=== PATIENT | female | born 1960 | race Caucasian/White ===

== ENCOUNTER → 2016-11-28 | Outpatient (REF) | payer OTHER ==
[~2016-11-28] MED LIST: ESTR0.5T3 PO
[2016-11-28 12:45] LABS: VITAMIN B12 LEVEL 467 PG/ML
[2016-11-28 13:12] LABS: BASO % 0.5 % (0.0-1.0); EOS # 0.1 K/mm3 (0.0-0.50); EOS % 1.9 % (0.0-3.0); LARGE UNSTAINED CELL # 0.1 K/mm3 (0.0-0.4); LARGE UNSTAINED CELL % 2.3 % (0.0-4.0); LYMPH # 1.8 K/mm3 (1.5-4.5); LYMPH % 33.5 % (24.0-44.0); MEAN CORPUSCULAR HEMOGLOBIN 32.7 pg (27.0-33.0); MEAN CORPUSCULAR VOLUME 96.3 fl (80.0-96.0); MONO # 0.3 K/mm3 (0.0-0.8); MONO % 5.5 % (0.0-5.0); NEUTROPHILS % 56.3 % (36.0-66.0); PLATELET COUNT, AUTOMATED 180 k/mm3 (150-450); RED CELL DISTRIBUTION WIDTH 12.5 % (11.5-14.5); WHITE BLOOD COUNT 5.3 K/mm3 (4.0-10.0)
[2016-11-28 13:30] LABS: ALBUMIN 3.7 GM/DL (3.2-5.2); ALBUMIN/GLOBULIN RATIO 1.37 (1.00-1.93); ALKALINE PHOSPHATASE 68 U/L (45-117); ALT/SGPT 47 U/L (12-78); ANION GAP 7 MEQ/L (8-16); AST/SGOT 22 U/L (15-37); BILIRUBIN,TOTAL 0.6 MG/DL (0.2-1.0); BLOOD UREA NITROGEN 15 MG/DL (7-18); CARBON DIOXIDE LEVEL 29 MEQ/L (21-32); CHLORIDE LEVEL 107 MEQ/L (98-107); CHOLESTEROL LEVEL 222 MG/DL (<200); CREATININE FOR GFR 0.89 MG/DL (0.55-1.02); GLOMERULAR FILTRATION RATE > 60.0 (>51); GLUCOSE, FASTING 100 MG/DL (70-105); POTASSIUM SERUM 4.1 MEQ/L (3.5-5.1); SODIUM LEVEL 143 MEQ/L (136-145); TOTAL PROTEIN 6.4 GM/DL (6.4-8.2); TRIGLYCERIDES LEVEL 93 MG/DL (<150)
== END ==
LOC: M LABDRAW1 11:37
PROVIDERS: ATTEND Emergency Medicine
DX: Z00.00 Encounter for general adult medical examination without abnormal findings (principal); J30.9 Allergic rhinitis, unspecified; D51.9 Vitamin B12 deficiency anemia, unspecified; E78.2 Mixed hyperlipidemia; E55.9 Vitamin D deficiency, unspecified

== ENCOUNTER → 2017-03-27 | Outpatient (REF) | payer OTHER | LOC: M LABDRAW1 10:17 | PROVIDERS: ATTEND Emergency Medicine | DX: E55.9 Vitamin D deficiency, unspecified (principal) ==

== ENCOUNTER → 2017-11-16 | Outpatient (REF) | payer OTHER ==
[2017-11-16 12:45] LABS: VITAMIN B12 LEVEL 639 PG/ML (247-911)
== END ==
LOC: M LABDRAW1 11:51
DX: E04.2 Nontoxic multinodular goiter (principal)
CPT/HCPCS: 84443

== ENCOUNTER → 2017-12-04 | Outpatient (REF) | payer OTHER ==
[2017-12-05 10:46] LABS: AMORPHOUS SEDIMENT SMALL (NEGATIVE); APPEARANCE, URINE CLOUDY (CLEAR); BACTERIA, URINE AUTO 3+ (NEGATIVE); BILIRUBIN, URINE AUTO NEGATIVE (NEGATIVE); BLOOD, URINE BLOOD NEGATIVE (NEGATIVE); COLOR, URINE YELLOW (YELLOW); GLUCOSE, URINE (UA) AUTO NEGATIVE (NEGATIVE); KETONE, URINE AUTO NEGATIVE (NEGATIVE); LEUKOCYTE ESTERASE, URINE AUTO 3+ (NEGATIVE); NITRITE, URINE AUTO NEGATIVE (NEGATIVE); PROTEIN, URINE AUTO NEGATIVE (NEGATIVE); RBC, URINE AUTO 5 /HPF (0-3); SPECIFIC GRAVITY URINE AUTO 1.011 (1.002-1.035); SQUAMOUS EPITHELIAL CELL UR AU 4 /HPF (0-6); TRANSITIONAL EPITHELIAL AUTO 1 /HPF; UROBILINOGEN, URINE AUTO 0.2 mg/dL (0.0-2.0); WBC, URINE AUTO 8 /HPF (0-3)
== END ==
LOC: M LAB REF 09:28
DX: N39.0 Urinary tract infection, site not specified (principal)
CPT/HCPCS: 81001

== ENCOUNTER 2019-01-03 12:06 | Emergency (ER) | payer OTHER ==
[~2019-01-03] VITALS: Ht 162.6 cm; Wt 69.2 kg
[2019-01-03] MEDS ORDERED: ESTRADIOL VAG (12:14)
[2019-01-03] MEDS ORDERED: ISOVUE-370 76% 100ML VIAL (Q9967) As Ordered ONE (12:54)
[2019-01-03 12:59] LABS: BASO % 0.3 % (0.0-1.0); EOS # 0.1 10^3/uL (0.0-0.50); EOS % 0.7 % (0.0-3.0); HEMATOCRIT 34.3 % (36.0-47.0); HEMOGLOBIN 10.7 g/dl (12.0-15.5); LYMPH # 1.6 10^3/uL (1.5-4.5); LYMPH % 22.7 % (24.0-44.0); MEAN CORPUSCULAR HEMOGLOBIN 30.7 pg (27.0-33.0); MEAN CORPUSCULAR HGB CONC 31.2 g/dl (32.0-36.5); MEAN CORPUSCULAR VOLUME 98.3 fl (80.0-96.0); MONO # 0.7 10^3/uL (0.0-0.8); MONO % 9.3 % (0.0-5.0); NEUTROPHILS # 4.6 10^3/uL (1.8-7.7); NEUTROPHILS % 66.3 % (36.0-66.0); PLATELET COUNT, AUTOMATED 317 10^3/uL (150-450); RED BLOOD COUNT 3.49 10^6/uL (4.00-5.40)
[2019-01-03 13:10] LABS: INR 1.1; PROTHROMBIN TIME 13.9 SECONDS (11.8-14.0)
[2019-01-03 13:11] LABS: PARTIAL THROMBOPLASTIN TIME 32.1 SECONDS (25.0-38.4)
[2019-01-03 13:28] LABS: ALBUMIN 2.7 GM/DL (3.2-5.2); ALT/SGPT 16 U/L (12-78); BILIRUBIN,DIRECT 0.2 MG/DL (0.0-0.2); BILIRUBIN,TOTAL 0.4 MG/DL (0.2-1.0); BLOOD UREA NITROGEN 10 MG/DL (7-18); CALCIUM LEVEL 8.9 MG/DL (8.5-10.1); CARBON DIOXIDE LEVEL 25 MEQ/L (21-32); CHLORIDE LEVEL 103 MEQ/L (98-107); CK-MB VALUE MASS < 1.0 NG/ML (<3.6); CPK CREATINE PHOSPHOKINASE 36 U/L (26-192); CREATININE FOR GFR 0.65 MG/DL (0.55-1.30); GLOMERULAR FILTRATION RATE > 60.0 (>51); GLUCOSE, FASTING 83 MG/DL (70-100); MB/CK RELATIVE INDEX 2.78 (< OR =4); NT-PRO BNP 91 PG/ML (<125); POTASSIUM SERUM 3.6 MEQ/L (3.5-5.1); SODIUM LEVEL 140 MEQ/L (136-145); TOTAL PROTEIN 6.7 GM/DL (6.4-8.2); TROPONIN I < 0.02 NG/ML (< 0.10)
--- NOTE | 2019-01-03 13:50 | REP ---
HISTORY: Chest pain and dyspnea. COMPARISON: No priors for comparison. CONTRAST: 100 mL [id number] There is excellent visualization of the pulmonary arterial vasculature. There are no focal filling defects present that would be considered consistent with pulmonary emboli. The thoracic aorta is within normal limits. There is a moderate pericardial effusion. There are tiny bilateral pleural effusions. There is no mediastinal or hilar adenopathy. The imaged upper abdomen is within normal limits. The imaged osseous structures are within normal limits. Evaluation of the lung florian shows bibasilar subsegmental atelectatic changes. There are no abnormal nodules, masses or opacities. IMPRESSION: 1. There is no pulmonary embolus. 2. There is a moderate pericardial effusion. 3. Tiny bilateral pleural effusions. Electronically Signed by Frantz Scott DO 01/03/2019 02:05 P
--- NOTE | 2019-01-03 14:27 | REP ---
Abdominal right upper quadrant ultrasound: The patient reportedly had a CT of the abdomen for renal calculi. During that CT an hepatic mass was suspected. This has CT is not available in our film file for review. On the ultrasound study today there is an echogenic mass near the dome of the liver in the midline measuring 3.5 x 3.9 x 3.9 cm with irregular margins. I would recommend hepatic MRI for further evaluation. The there is no cholelithiasis, gallbladder wall thickening or pericholecystic fluid. There is no intrahepatic or extrahepatic biliary duct dilatation, the common duct measures 4 mm in diameter. The pancreas is obscured by bowel gas. The right kidney is normal size measuring 10.6 x 5.0 x 4.3 cm. No right renal calculus, hydronephrosis, mass or cyst. There is no right upper quadrant ascites. The study is technically difficult as the images had to be obtained through intercostal acoustic window. Impression: There is an echogenic hepatic mass near the dome of the liver in the midline measuring up to 3.9 cm. I would recommend hepatic MRI for further evaluation. Electronically Signed by Curly Amaya MD 01/03/2019 02:19 P
--- NOTE | 2019-01-03 16:13 | ECHO ---
DATE OF PROCEDURE: 01/03/2019 DATE OF : 1960 REFERRING PHYSICIAN: Dr. Carlos Mcginnis HEIGHT: 163 cm WEIGHT: 68.4 kg INDICATION: Pericardial effusion. 2D MEASUREMENTS: Aortic root: 3.0 cm Left atrium: 3.8 cm Left ventricle diastole: 4.2 cm Ventricular septum: 0.83 cm Posterior wall: 0.98 cm Aortic annulus: 2.4 cm Inferior vena cava: 1.7 cm (more than 50% respiratory variation). DOPPLER MEASUREMENTS: Aortic valve velocity: 110 cm/s LVOT velocity: 75.9 cm/s Mitral E velocity: 84.9 cm/s Mitral A velocity: 66.1 cm/s Mitral deceleration time: 151 ms Very mild tricuspid regurgitation. Very mild pulmonic regurgitation. Pulmonary artery systolic pressure: 38 mmHg MITRAL ANNULAR TISSUE DOPPLER: E prime septal: 8.3 cm/s E prime lateral: 10.7 cm/s DESCRIPTION: Rhythm was sinus. Image quality was good. This was a 2D, M-mode, color flow Doppler and pulse wave Doppler examination and included mitral annular tissue Doppler. CONCLUSIONS: 1. Small-moderate size pericardial effusion, which measured 11 mm over the posterior wall of the left ventricle at basal level and measured 11 mm over the right ventricle conus portion anteriorly. No diastolic chamber collapse. No significant respiratory variation of intracardiac flow velocities. No masses were seen within the pericardial effusion. 2. Normal left ventricle size and systolic function and wall thickness. Normal regional left ventricular (LV) wall motion and wall thickening. Normal LV systolic function. Left ventricular ejection fraction (LVEF) 65% by visual estimate. Normal LV diastolic function. 3. Suggestive of mild elevation of pulmonary artery systolic pressure. 4. Very mild aortic valve sclerosis of a 3-cusp aortic valve. No aortic regurgitation. 5. Suggestive of normal central venous pressure (5-10 mmHg).
[2019-01-03] MEDS ORDERED: COLC1TAB13 PO ×3 (16:16→17:35)
[2019-01-03 16:45] LABS: RHEUMATOID FACTOR QUANT < 10.0 IU/ML (<15.0)
[2019-01-03 17:00] VITALS: BP 97/53
--- NOTE | 2019-01-03 20:53 | ECGEPIP ---
[facility] - ED Test Date: 2019-01-03 Pat Name: MANE HOLLIS Department: Room: - Gender: Female [employer]: : 1960 Requested By: LAUREL Beltran Order Number: [id number] Reading MD: Andrew Loredo Measurements Intervals [place] Rate: 79 P: 43 LA: 180 QRS: 0 QRSD: 105 T: 30 QT: 395 QTc: 454 Interpretive Statements SINUS RHYTHM LOW QRS VOLTAGE IN PRECORDIAL LEADS NSTTW ABNORMALITIES NO PRIORS FOR COMPARISON Electronically Signed on 01-03-2019 20:53:18 EDT by Andrew Loredo
--- NOTE | 2019-01-04 19:56 | ED PDOC ---
Post-Departure Follow-Up dr marino sandoval faxed formal report of liver us for fu Nyla Randle MD Jan 04, 2019 19:56
[2019-01-05 14:09] LABS: ANTINUCLEAR ANTIBODIES DIRECT Negative (Negative)
== END 2019-01-03 17:07 | disposition home or self-care (01) ==
LOC: M ED 12:06
DX: I31.3 Pericardial effusion (noninflammatory) (principal); R93.2 Abnormal findings on diagnostic imaging of liver and biliary tract; E78.5 Hyperlipidemia, unspecified; R01.1 Cardiac murmur, unspecified; Z79.899 Other long term (current) drug therapy; Z88.6 Allergy status to analgesic agent
CPT/HCPCS: 36415; 71275; 76705; 80047; 80048; 80076; 81001; 82550; 82553; 83880; 84443; 84484; 85025; 85610; 85730; 86038; 86063; 86140; 86431; 87040; 87086; 93005; 93041; 93306; 94760; 99285; Q9967

== ENCOUNTER → 2019-01-11 | Outpatient (CLI) | payer OTHER ==
[~2019-01-11] MED LIST changes: +COLC1TAB13 PO; +ESTRADIOL VAG; +PROHANCE 279.3MG/ML 15ML VIAL (A9576) As Ordered ONE
[2019-01-11 12:32] LABS: HEPATITIS B SURFACE ANTIBODY POSITIVE (POSITIVE); HEPATITIS C VIRUS ABY INDEX 0.1 INDEX (<0.8)
--- NOTE | 2019-01-11 13:44 | REP ---
MRI ABDOMEN WITHOUT AND WITH INTRAVENOUS CONTRAST: HISTORY: Neoplasm of the liver. Comparison CT study January 03 2019. Comparison sonography January 03, 2019. TECHNIQUE: Axial and coronal imaging planes utilized. T1- and T2-weighted sequences include spin echo, fast spin echo, in- and out- of-phase, diffusion, and dynamically acquired sequential post contrast images. The contrast enhancement dose is 13.4 mL of intravenous ProHance. MRI FINDINGS: Gallbladder is small and contracted at the time of the MRI scan. Just lateral to the falciform ligament in the liver, there is an area of low T1 heterogeneously high T2 signal intensity. There is marked signal intensity dropout in this lesion on [id number] imaging relative to normal liver parenchyma consistent with fat content. The lesion shows low density on recent CT study and increased echogenicity sonographically. These findings are compatible with regional fatty infiltration of the liver. The lesion is wedge-shaped and not mass-like which is also consistent with a geographic focus of fatty infiltration. No other focal liver lesion is appreciated. Postcontrast images show normal vessels coursing through this. No abnormal contrast enhancement. No pancreatic, splenic, adrenal or renal lesion is observed. Exam is otherwise unremarkable. IMPRESSION: There is a focus of fatty infiltration in the liver corresponding to the lesion seen on recent CT and ultrasound. No other significant finding. Electronically Signed by Godwin Rawls MD 01/11/2019 03:47 P
== END ==
LOC: M RAD 09:56
PROVIDERS: ATTEND Internal Medicine
DX: D37.6 Neoplasm of uncertain behavior of liver, gallbladder and bile ducts (principal); K76.0 Fatty (change of) liver, not elsewhere classified
CPT/HCPCS: 36415; 74183; 82105; 82378; 86480; 86706; 86803; 87340; A9576

== ENCOUNTER → 2019-01-17 | Outpatient (CLI) | payer OTHER ==
[~2019-01-17] MED LIST changes: -PROHANCE 279.3MG/ML 15ML VIAL (A9576) As Ordered ONE
--- NOTE | 2019-01-18 05:07 | REP ---
Clinical: Pleural and pericardial effusion. Technique: Axial noncontrast images from the thoracic inlet to the upper abdomen with coronal and sagittal re-formations. Comparison: 01/03/2019. Findings: The bilateral lung florian are well-aerated and clear. No consolidation, significant nodule or mass lesion appreciated. No pleural effusion. No pneumothorax. Tracheobronchial tree is patent. Moderate pericardial effusion is similar to prior examination. No underlying cardiomegaly is appreciated. No obvious adenopathy. Musculoskeletal structures are intact without focal abnormality. Stable hepatic cysts identified in the upper abdomen with normal bilateral adrenal glands. Impression: 1. Moderate pericardial effusion relatively similar to prior examination. No associated cardiomegaly or adenopathy. 2. Previously noted trace basilar atelectasis and small pleural reactions have resolved. No new, acute pleuroparenchymal process appreciated. Electronically Signed by Song Humphrey MD 01/18/2019 04:59 A
== END ==
LOC: M RAD 08:51
PROVIDERS: ATTEND Internal Medicine
DX: J90 Pleural effusion, not elsewhere classified (principal); I31.3 Pericardial effusion (noninflammatory)

== ENCOUNTER → 2019-03-12 | Outpatient (CLI) | payer OTHER ==
--- NOTE | 2019-03-13 08:19 | ECHO ---
DATE OF PROCEDURE: 03/12/2019 REFERRING PHYSICIAN: Dr. Per Castillo INDICATION: Pericarditis. Height 162 cm Weight 64 kg. DIMENSIONS: IVS 0.7 LV 4.7 LVPW 1.1 LA 3.5 Aorta 3.1 IVC 1.2 Mitral E wave velocity 53, A-wave 43 E prime septal 7.0, E prime lateral 8.4 FINDINGS: The study is of acceptable technical quality. The patient is in sinus rhythm. Left ventricle is of normal size and systolic function with estimated LVEF 60-65%. Computer-calculated LVEF was 61%. Right ventricle is also normal size and systolic function. Both atria appear normal. All four cardiac valves were reasonably well seen and appear normal. Small circumferential pericardial effusion is noted. I do not appreciate diastolic collapse of any of four cardiac chambers. Inferior vena cava is relatively small caliber. Aortic root is normal. Aortic arch is also normal. Abdominal aorta was not well seen. Doppler interrogation reveals competent aortic and mitral valves. There is trace tricuspid insufficiency with calculated pulmonary artery pressure in teens corresponding to normal values. Pulmonic valve is functionally competent. Mitral inflow pattern and tissue Doppler imaging of mitral annulus reveal normal diastolic functional left ventricle. CONCLUSIONS: 1. Study is of acceptable technical quality. 2. Normal LV size and systolic function, normal diastolic function. 3. No significant valvular disease. 4. Normal central venous pressure and normal pulmonary artery pressure. 5. Small circumferential pericardial effusion. 6. Compared to echocardiogram from January 03, 2019 there has been virtually no change. COMMENT: SBE prophylaxis is not recommended. MTDD
== END ==
LOC: M CARPUL 08:13
PROVIDERS: ATTEND Thoracic Surgery (Cardiothoracic Vascular Surgery)
DX: I30.0 Acute nonspecific idiopathic pericarditis (principal)

== ENCOUNTER → 2019-07-09 | Outpatient (REF) | payer OTHER ==
[2019-07-09 14:00] LABS: APPEARANCE, URINE HAZY (CLEAR); BACTERIA, URINE AUTO 1+ (NEGATIVE); BILIRUBIN, URINE AUTO NEGATIVE (NEGATIVE); BLOOD, URINE BLOOD NEGATIVE (NEGATIVE); COLOR, URINE YELLOW (YELLOW); GLUCOSE, URINE (UA) AUTO NEGATIVE (NEGATIVE); KETONE, URINE AUTO NEGATIVE (NEGATIVE); LEUKOCYTE ESTERASE, URINE AUTO NEGATIVE (NEGATIVE); MUCUS, URINE SMALL (NEGATIVE); NITRITE, URINE AUTO NEGATIVE (NEGATIVE); PROTEIN, URINE AUTO NEGATIVE (NEGATIVE); RBC, URINE AUTO 3 /HPF (0-3); SPECIFIC GRAVITY URINE AUTO 1.023 (1.002-1.035); SQUAMOUS EPITHELIAL CELL UR AU 1 /HPF (0-6); UROBILINOGEN, URINE AUTO 0.2 mg/dL (0.0-2.0); WBC, URINE AUTO 1 /HPF (0-3)
[2019-07-09 14:11] LABS: C REACTIVE PROTEIN QUANTITATIV 1.63 MG/DL (0.00-0.30); COMPLEMENT C3 119 MG/DL (90-180); COMPLEMENT C4 24 MG/DL (10-40); FREE T4 0.93 NG/DL (0.76-1.46); RHEUMATOID FACTOR QUANT < 10.0 IU/ML (<15.0)
[2019-07-13 00:07] LABS: ANA (HEP2) Negative (.); CYCLIC CITRULLINATED PEPTIDE 9 units (0-19); Lyme Disease IgG/IgM Antibodie <0.91 ISR (0.00-0.90); Lyme Disease IgM Ab Quantitati <0.80 index (0.00-0.79)
== END ==
LOC: M SFHCRHEU 10:52
PROVIDERS: ATTEND Internal Medicine
DX: I31.3 Pericardial effusion (noninflammatory) (principal); R79.82 Elevated C-reactive protein (CRP); R31.9 Hematuria, unspecified
CPT/HCPCS: 36415; 81001; 84439; 84443; 85652; 86038; 86140; 86160; 86200; 86256; 86431; 86480; 86617; G0463

== ENCOUNTER → 2019-10-11 | Outpatient (REF) | payer OTHER | LOC: M SFHCRHEU 12:18 | PROVIDERS: ATTEND Internal Medicine | DX: M35.3 Polymyalgia rheumatica (principal) | CPT/HCPCS: 85652; 86140; 86200; G0463 ==

== ENCOUNTER → 2020-03-20 | Outpatient (CLI) | payer OTHER ==
--- NOTE | 2020-03-20 13:27 | REPVR ---
PROCEDURE INFORMATION: Exam: US Duplex Left Lower Extremity Veins, Limited Exam date and time: 03/20/2020 1:09 PM Age: 59 years old Clinical indication: Pain; Leg, lower; Left; Additional info: Lt leg pain swelling ? dvt TECHNIQUE: Imaging protocol: Real-time Duplex ultrasound of the Left Lower Extremity with 2-D callahan scale, color Doppler flow and spectral waveform analysis with image documentation. Limited exam focused on the left lower extremity veins. COMPARISON: No relevant prior studies available. FINDINGS: Left deep veins: Unremarkable. The common femoral, femoral, proximal profunda femoral and popliteal veins are patent without thrombus. Normal Doppler waveforms. Normal compressibility and/or augmentation response. Left superficial veins: Unremarkable. Saphenofemoral junction is patent without thrombus. The calf veins were not imaged on this exam. Soft tissues: Unremarkable. IMPRESSION: No evidence of deep vein thrombosis above the knee. Please note that the calf veins were not imaged on this exam. Electronically signed by: Virgil Stone On 03/20/2020 13:26:54 PM
== END ==
LOC: M RAD 12:55
PROVIDERS: ATTEND Internal Medicine
DX: R22.42 Localized swelling, mass and lump, left lower limb (principal)

== ENCOUNTER → 2020-10-23 | Outpatient (CLI) | payer OTHER ==
[~2020-10-23] MED LIST changes: +COLC0.6T47 PO; -COLC1TAB13 PO
--- NOTE | 2020-10-25 07:36 | REP ---
INDICATION: UNSPECIFIED DYSPAREUNIA,PELVIC AND PERINEAL PAIN COMPARISON: None TECHNIQUE: Real time B-mode ultrasound examination using curved array transducer. FINDINGS: Bladder is normal in appearance without wall thickening or mass lesion. Bilateral ureteral jets are identified. Prevoid bladder measures 4.3 x 5.7 x 4.3 cm (69 cc). Postvoid bladder measures 2.4 x 2.3 x 2.4 cm (8.6 cc). Postvoid residual: 12.5 IMPRESSION: 1. Poorly distended prevoid bladder limits evaluation. <Electronically signed by Song Humphrey > 10/25/20 [id number]
== END ==
LOC: M RAD 12:40
PROVIDERS: ATTEND Obstetrics & Gynecology
DX: R10.2 Pelvic and perineal pain (principal); N94.10 Unspecified dyspareunia

== ENCOUNTER 2021-10-14 19:21 | Emergency (ER) | payer OTHER ==
[~2021-10-14] VITALS: Ht 162.6 cm; Wt 77.3 kg
[2021-10-14 20:16] LABS: BASO % 0.5 % (0.0-1.0); EOS # 0.1 10^3/uL (0.0-0.5); EOS % 1.2 % (0.0-3.0); HEMATOCRIT 39.7 % (36.0-47.0); HEMOGLOBIN 13.2 g/dl (12.0-15.5); LYMPH # 2.4 10^3/uL (1.5-5.0); LYMPH % 36.3 % (24.0-44.0); MEAN CORPUSCULAR HEMOGLOBIN 31.4 pg (27.0-33.0); MEAN CORPUSCULAR HGB CONC 33.2 g/dl (32.0-36.5); MEAN CORPUSCULAR VOLUME 94.3 fl (80.0-96.0); MONO # 0.5 10^3/uL (0.0-0.8); MONO % 7.4 % (2.0-8.0); NEUTROPHILS # 3.5 10^3/uL (1.5-8.5); NEUTROPHILS % 54.3 % (36.0-66.0); PLATELET COUNT, AUTOMATED 207 10^3/uL (150-450); RED BLOOD COUNT 4.21 10^6/uL (4.00-5.40); WHITE BLOOD COUNT 6.5 10^3/uL (4.0-10.0)
[2021-10-14] MEDS ORDERED: methylPREDNISolone 125MG 2ML VIAL IV ONE (20:25)
[2021-10-14 20:40] LABS: BLOOD UREA NITROGEN 12 MG/DL (7-18); CALCIUM LEVEL 9.7 MG/DL (8.5-10.1); CARBON DIOXIDE LEVEL 29 MEQ/L (21-32); CHLORIDE LEVEL 107 MEQ/L (98-107); CREATININE FOR GFR 0.89 MG/DL (0.55-1.30); GLOMERULAR FILTRATION RATE > 60.0 (>51); GLUCOSE, FASTING 99 MG/DL (70-100); NT-PRO BNP 41 PG/ML (<125); POTASSIUM SERUM 3.8 MEQ/L (3.5-5.1); SODIUM LEVEL 141 MEQ/L (136-145)
[2021-10-14 20:43] LABS: ERYTHROCYTE SEDIMENTATION RATE 6 mm/hr (0-30)
[2021-10-14 21:28] LABS: CK-MB VALUE MASS < 1.0 NG/ML (<3.6); CPK CREATINE PHOSPHOKINASE 74 U/L (26-192); MB/CK RELATIVE INDEX 1.35 (< OR =4)
[2021-10-14 22:14] LABS: CK-MB VALUE MASS < 1.0 NG/ML (<3.6); CPK CREATINE PHOSPHOKINASE 68 U/L (26-192); MB/CK RELATIVE INDEX 1.47 (< OR =4)
[2021-10-14] MEDS ORDERED: HYDR200T3 PO (23:08)
[2021-10-14] MEDS ORDERED: NOXI1TAB PO (23:10)
[2021-10-14] MEDS ORDERED: CALC-190 PO (23:10)
[2021-10-14] MEDS ORDERED: ESTR1CRE PV (23:10)
[2021-10-14] MEDS ORDERED: PRED20TA PO (23:16)
[2021-10-14 23:45] VITALS: BP 118/56
== END 2021-10-14 23:55 | disposition home or self-care (01) ==
LOC: M ED 19:21
DX: I77.89 Other specified disorders of arteries and arterioles (principal); E03.9 Hypothyroidism, unspecified; Z88.6 Allergy status to analgesic agent; Z79.899 Other long term (current) drug therapy
CPT/HCPCS: 71045; 80048; 82550; 82553; 83880; 84484; 85025; 85652; 86140; 93005; 93041; 94760; 96374; 99285; J2930

== ENCOUNTER → 2021-10-26 | Outpatient (REF) | payer OTHER ==
[~2021-10-26] MED LIST changes: +CALC-190 PO; +ESTR1CRE PV; +HYDR200T3 PO; +NOXI1TAB PO; +PRED20TA PO
[2021-10-26 13:49] LABS: BASO % 0.3 % (0.0-1.0); EOS # 0.1 10^3/uL (0.0-0.5); EOS % 1.2 % (0.0-3.0); HEMATOCRIT 41.4 % (36.0-47.0); HEMOGLOBIN 13.2 g/dl (12.0-15.5); LYMPH # 1.8 10^3/uL (1.5-5.0); LYMPH % 30.2 % (24.0-44.0); MEAN CORPUSCULAR HEMOGLOBIN 30.9 pg (27.0-33.0); MEAN CORPUSCULAR HGB CONC 31.9 g/dl (32.0-36.5); MONO # 0.4 10^3/uL (0.0-0.8); MONO % 7.3 % (2.0-8.0); NEUTROPHILS # 3.7 10^3/uL (1.5-8.5); NEUTROPHILS % 60.8 % (36.0-66.0); PLATELET COUNT, AUTOMATED 185 10^3/uL (150-450); RED BLOOD COUNT 4.27 10^6/uL (4.00-5.40)
[2021-10-26 14:19] LABS: ALBUMIN 3.7 GM/DL (3.2-5.2); ALT/SGPT 19 U/L (12-78); BILIRUBIN,TOTAL 0.6 MG/DL (0.2-1.0); BLOOD UREA NITROGEN 13 MG/DL (7-18); CARBON DIOXIDE LEVEL 30 MEQ/L (21-32); CHLORIDE LEVEL 107 MEQ/L (98-107); CREATININE FOR GFR 0.85 MG/DL (0.55-1.30); GLOMERULAR FILTRATION RATE > 60.0 (>51); GLUCOSE, FASTING 86 MG/DL (70-100); POTASSIUM SERUM 4.4 MEQ/L (3.5-5.1); SODIUM LEVEL 141 MEQ/L (136-145); TOTAL PROTEIN 6.1 GM/DL (6.4-8.2)
[2021-10-26 14:30] LABS: ERYTHROCYTE SEDIMENTATION RATE 5 mm/hr (0-30)
== END ==
LOC: M SFHCRHEU 06:43
PROVIDERS: ATTEND Internal Medicine Rheumatology
DX: M35.3 Polymyalgia rheumatica (principal)

== ENCOUNTER → 2021-11-02 | Outpatient (CLI) | payer OTHER ==
[~2021-11-02] MED LIST changes: +ISOVUE-370 76% 100ML VIAL As Ordered ONE
== END ==
LOC: M RAD 16:41
PROVIDERS: ATTEND Internal Medicine
DX: R13.19 Other dysphagia (principal)
CPT/HCPCS: 70491; Q9967

== ENCOUNTER → 2021-11-16 | Outpatient (REF) | payer OTHER ==
[~2021-11-16] MED LIST changes: -ISOVUE-370 76% 100ML VIAL As Ordered ONE
[2021-11-16 11:41] LABS: BASO % 0.6 % (0.0-1.0); EOS # 0.1 10^3/uL (0.0-0.5); EOS % 1.5 % (0.0-3.0); HEMATOCRIT 40.7 % (36.0-47.0); HEMOGLOBIN 13.1 g/dl (12.0-15.5); LYMPH # 1.6 10^3/uL (1.5-5.0); LYMPH % 32.8 % (24.0-44.0); MEAN CORPUSCULAR HEMOGLOBIN 31.4 pg (27.0-33.0); MEAN CORPUSCULAR HGB CONC 32.2 g/dl (32.0-36.5); MEAN CORPUSCULAR VOLUME 97.6 fl (80.0-96.0); MONO # 0.3 10^3/uL (0.0-0.8); MONO % 6.1 % (2.0-8.0); NEUTROPHILS # 2.8 10^3/uL (1.5-8.5); NEUTROPHILS % 58.8 % (36.0-66.0); PLATELET COUNT, AUTOMATED 197 10^3/uL (150-450); RED BLOOD COUNT 4.17 10^6/uL (4.00-5.40); WHITE BLOOD COUNT 4.8 10^3/uL (4.0-10.0)
[2021-11-16 12:10] LABS: ALBUMIN 3.5 GM/DL (3.2-5.2); ALT/SGPT 20 U/L (12-78); BILIRUBIN,TOTAL 0.3 MG/DL (0.2-1.0); BLOOD UREA NITROGEN 13 MG/DL (7-18); CALCIUM LEVEL 8.9 MG/DL (8.5-10.1); CARBON DIOXIDE LEVEL 30 MEQ/L (21-32); CHLORIDE LEVEL 110 MEQ/L (98-107); CREATININE FOR GFR 0.76 MG/DL (0.55-1.30); GLOMERULAR FILTRATION RATE > 60.0 (>51); GLUCOSE, FASTING 106 MG/DL (70-100); POTASSIUM SERUM 4.5 MEQ/L (3.5-5.1); SODIUM LEVEL 143 MEQ/L (136-145); TOTAL PROTEIN 6.2 GM/DL (6.4-8.2)
[2021-11-16 12:15] LABS: TOTAL 25(OH) VITAMIN D 44.3 NG/ML (30.0-100.0)
[2021-11-16 12:39] LABS: ERYTHROCYTE SEDIMENTATION RATE 7 mm/hr (0-30)
== END ==
LOC: M SFHCRHEU 06:42
PROVIDERS: ATTEND Internal Medicine Rheumatology
DX: Z00.00 Encounter for general adult medical examination without abnormal findings (principal); M35.3 Polymyalgia rheumatica; E55.9 Vitamin D deficiency, unspecified; Z79.899 Other long term (current) drug therapy

== ENCOUNTER → 2021-11-23 | Outpatient (CLI) | payer OTHER ==
[~2021-11-23] MED LIST changes: +BARIUM SULFATE 700 MG TABLET (E-Z-DISK) As Ordered ONE; +E-Z-PAQUE 96% w/w SUSP 176GM BTL As Ordered ONE; +VARIBAR NECTAR 40% w/v 240ML SUSP BTL As Ordered ONE; +VARIBAR PUDDING 40% w/v 230ML TUBE As Ordered ONE
== END ==
LOC: M RAD 10:22
DX: R13.10 Dysphagia, unspecified (principal)
CPT/HCPCS: 74230; 92611; G0463

== ENCOUNTER → 2021-12-21 | Outpatient (CLI) | payer OTHER ==
[~2021-12-21] MED LIST changes: -BARIUM SULFATE 700 MG TABLET (E-Z-DISK) As Ordered ONE; -E-Z-PAQUE 96% w/w SUSP 176GM BTL As Ordered ONE; -VARIBAR NECTAR 40% w/v 240ML SUSP BTL As Ordered ONE; -VARIBAR PUDDING 40% w/v 230ML TUBE As Ordered ONE
== END ==
LOC: M RAD 15:48
PROVIDERS: ATTEND Student in an Organized Health Care Education/Training Program
DX: M54.42 Lumbago with sciatica, left side (principal)
CPT/HCPCS: 72110; G0463

== ENCOUNTER 2022-01-27 09:01 | Emergency (ER) | payer OTHER ==
[~2022-01-27] VITALS: Ht 162.6 cm; Wt 77.7 kg
[2022-01-27] MEDS ORDERED: LIDOCAINE 5% (LIDODERM) PATCH TD ONE (09:25)
[2022-01-27] MEDS ORDERED: NS 1,000 ML IV ONE (09:25)
[2022-01-27] MEDS ORDERED: GI COCKTAIL 50ML BTL(HYOSCYAMINE/MAALOX/LIDOCAINE VISCOUS)(1:3:1) PO ONE (09:50)
[2022-01-27] MEDS ORDERED: PANTOPRAZOLE 40MG VIAL IV ONE (09:50)
[2022-01-27 09:53] LABS: BASO % 0.6 % (0.0-1.0); EOS # 0.1 10^3/uL (0.0-0.5); EOS % 1.3 % (0.0-3.0); HEMATOCRIT 39.4 % (36.0-47.0); LYMPH # 1.6 10^3/uL (1.5-5.0); LYMPH % 29.6 % (24.0-44.0); MEAN CORPUSCULAR HEMOGLOBIN 31.6 pg (27.0-33.0); MEAN CORPUSCULAR VOLUME 95.6 fl (80.0-96.0); MONO # 0.4 10^3/uL (0.0-0.8); MONO % 7.3 % (2.0-8.0); NEUTROPHILS # 3.3 10^3/uL (1.5-8.5); PLATELET COUNT, AUTOMATED 184 10^3/uL (150-450); RED BLOOD COUNT 4.12 10^6/uL (4.00-5.40); WHITE BLOOD COUNT 5.4 10^3/uL (4.0-10.0)
[2022-01-27 10:11] LABS: INR 0.91; PROTHROMBIN TIME 12.6 SECONDS (12.7-14.5)
[2022-01-27 10:12] LABS: PARTIAL THROMBOPLASTIN TIME 28.2 SECONDS (25.9-37.0)
[2022-01-27 10:21] LABS: CK-MB VALUE MASS 1.9 NG/ML (<3.6); CPK CREATINE PHOSPHOKINASE 84 U/L (26-192); MB/CK RELATIVE INDEX 2.26 (< OR =4)
[2022-01-27 10:29] LABS: ALBUMIN 3.4 GM/DL (3.2-5.2); ALT/SGPT 22 U/L (12-78); BILIRUBIN,DIRECT 0.2 MG/DL (0.0-0.2); BILIRUBIN,TOTAL 0.4 MG/DL (0.2-1.0); BLOOD UREA NITROGEN 12 MG/DL (7-18); CALCIUM LEVEL 9.1 MG/DL (8.5-10.1); CARBON DIOXIDE LEVEL 27 MEQ/L (21-32); CHLORIDE LEVEL 109 MEQ/L (98-107); FREE T4 0.85 NG/DL (0.76-1.46); GLOMERULAR FILTRATION RATE > 60.0 (>51); GLUCOSE, FASTING 93 MG/DL (70-100); LIPASE 92 U/L (73-393); POTASSIUM SERUM 4.1 MEQ/L (3.5-5.1); SODIUM LEVEL 140 MEQ/L (136-145); TOTAL PROTEIN 5.9 GM/DL (6.4-8.2)
[2022-01-27] MEDS ORDERED: ISOVUE-370 76% 100ML VIAL As Ordered ONE (10:45)
[2022-01-27] MEDS ORDERED: methocarbamoL 750 MG TAB PO ONE (10:45)
[2022-01-27] MEDS ORDERED: METH-1165 PO (11:34)
[2022-01-27] MEDS ORDERED: ASPE4PAD TOP (11:34)
[2022-01-27] MEDS ORDERED: OMEP-173 PO (11:34)
[2022-01-27 12:06] VITALS: BP 115/57
[2022-01-27] MEDS ORDERED: **NOTE PATIENT COMMENT** MISC XX ONE (22:00)
== END 2022-01-27 12:07 | disposition home or self-care (01) ==
LOC: M ED 09:01
DX: R07.9 Chest pain, unspecified (principal); M54.50 Low back pain, unspecified; M54.6 Pain in thoracic spine; R10.13 Epigastric pain; Z88.6 Allergy status to analgesic agent
CPT/HCPCS: 71045; 71275; 80048; 80076; 82550; 82553; 83690; 84439; 84443; 84484; 85025; 85610; 85730; 93005; 93041; 94760; 96374; 99284; C9113; Q9967

== ENCOUNTER → 2022-09-02 | Outpatient (CLI) | payer OTHER ==
[~2022-09-02] MED LIST changes: +ASPE4PAD TOP; -ESTR1CRE PV; +ESTR1CRE VG; +ESTR1TAB PO; +METH-1165 PO; +OMEP-173 PO; +VITA100093 PO
== END ==
LOC: M RAD 06:23
PROVIDERS: ATTEND Student in an Organized Health Care Education/Training Program
DX: R16.0 Hepatomegaly, not elsewhere classified (principal)

== ENCOUNTER → 2023-01-04 | Outpatient (REF) | payer OTHER ==
[~2023-01-04] MED LIST changes: -HYDR200T3 PO; +HYDR200T46 PO; +LORA-930
== END ==
LOC: M SFHCRHEU 09:23
PROVIDERS: ATTEND Internal Medicine Rheumatology
DX: Z00.00 Encounter for general adult medical examination without abnormal findings (principal); M35.3 Polymyalgia rheumatica; R76.8 Other specified abnormal immunological findings in serum; Z79.899 Other long term (current) drug therapy; R94.6 Abnormal results of thyroid function studies; E55.9 Vitamin D deficiency, unspecified; Z53.9 Procedure and treatment not carried out, unspecified reason

== ENCOUNTER → 2023-02-08 | Outpatient (CLI) | payer OTHER | LOC: M PLAIMG 13:09 | PROVIDERS: ATTEND Family Medicine | DX: S06.0X9D Concussion with loss of consciousness of unspecified duration, subsequent encounter (principal) ==

== ENCOUNTER → 2023-04-17 | Outpatient (REF) | payer OTHER | LOC: M SFHCWAGY 13:15 | PROVIDERS: ATTEND Nurse Practitioner Family | DX: Z12.72 Encounter for screening for malignant neoplasm of vagina (principal) | CPT/HCPCS: 87624; G0123; G0463 ==

== ENCOUNTER 2023-05-22 08:48 | Emergency (ER) | payer OTHER ==
[~2023-05-22] VITALS: Ht 162.6 cm; Wt 67.3 kg
[2023-05-22] MEDS ORDERED: ECOT81TA5 PO (09:18)
[2023-05-22 10:01] LABS: BASO % 0.4 % (0.0-1.0); EOS % 0.8 % (0.0-3.0); HEMATOCRIT 38.2 % (36.0-47.0); HEMOGLOBIN 12.7 g/dl (12.0-15.5); LYMPH # 1.4 10^3/uL (1.5-5.0); LYMPH % 29.1 % (24.0-44.0); MEAN CORPUSCULAR HEMOGLOBIN 31.8 pg (27.0-33.0); MEAN CORPUSCULAR HGB CONC 33.2 g/dl (32.0-36.5); MEAN CORPUSCULAR VOLUME 95.7 fl (80.0-96.0); MONO # 0.3 10^3/uL (0.0-0.8); MONO % 6.5 % (2.0-8.0); NEUTROPHILS # 3.1 10^3/uL (1.5-8.5); PLATELET COUNT, AUTOMATED 175 10^3/uL (150-450); RED BLOOD COUNT 3.99 10^6/uL (4.00-5.40); WHITE BLOOD COUNT 4.9 10^3/uL (4.0-10.0)
[2023-05-22] MEDS ORDERED: MED REC IN PROGRESS XX SCH (10:20)
[2023-05-22 10:21] LABS: INR 1.04; PROTHROMBIN TIME 13.3 SECONDS (12.5-14.5)
[2023-05-22 10:22] LABS: PARTIAL THROMBOPLASTIN TIME 27.1 SECONDS (24.8-34.2)
[2023-05-22 10:28] LABS: AMPHETAMINES LEVEL URINE NEGATIVE (NEGATIVE); BARBITURATES URINE NEGATIVE (NEGATIVE); BENZODIAZEPINES URINE NEGATIVE (NEGATIVE); CANNABINOIDS URINE NEGATIVE (NEGATIVE); COCAINE METABOLITE URINE NEGATIVE (NEGATIVE); METHADONE URINE NEGATIVE (NEGATIVE); OPIATES URINE NEGATIVE (NEGATIVE); PHENCYCLIDINE URINE NEGATIVE (NEGATIVE)
[2023-05-22 11:21] VITALS: TEMP 97.2; O2SAT 100
[2023-05-22 11:45] LABS: CK-MB VALUE MASS < 1.0 NG/ML (<3.6)
[2023-05-22 11:55] LABS: CPK CREATINE PHOSPHOKINASE 88 U/L (34-145); MB/CK RELATIVE INDEX 1.13 (< OR =4)
[2023-05-22 12:11] LABS: RSV AMPLIFICATION NEGATIVE (NEGATIVE)
[2023-05-22] MEDS ORDERED: HOME MED LIST COMPLETE! XX SCH (12:30)
[2023-05-22 12:48] VITALS: BP 143/63
[2023-05-22 13:02] LABS: ALBUMIN 3.7 G/DL (3.2-5.2); ALKALINE PHOSPHATASE 49 U/L (46-116); ALT/SGPT 25 U/L (7.0-40); AST/SGOT 19 U/L (<34); BILIRUBIN,DIRECT 0.1 MG/DL (<0.4); BILIRUBIN,TOTAL 0.5 MG/DL (0.3-1.2); BLOOD UREA NITROGEN 11 MG/DL (9-23); CALCIUM LEVEL 8.7 MG/DL (8.3-10.6); CARBON DIOXIDE LEVEL 25 MMOL/L (20-31); CHLORIDE LEVEL 109 MMOL/L (98-107); CREATININE FOR GFR 0.64 MG/DL (0.55-1.30); ETHYL ALCOHOL (ETHANOL) 0.004 % (0.000-0.010); FREE T4 1.02 NG/DL (0.89-1.76); GLOMERULAR FILTRATION RATE > 60.0 (>45); GLUCOSE, FASTING 96 MG/DL (74-106); SALICYLATE LEVEL < 3.0 MG/DL (<30); SODIUM LEVEL 143 MMOL/L (136-145); THYROID STIMULATING HORMONE 1.512 uIU/ML (0.55-4.78); TOTAL PROTEIN 6.1 G/DL (5.7-8.2)
[2023-05-22 13:15] LABS: CK-MB VALUE MASS < 1.0 NG/ML (<3.6)
[2023-05-22 13:17] LABS: CPK CREATINE PHOSPHOKINASE 92 U/L (34-145); MB/CK RELATIVE INDEX 1.08 (< OR =4)
== END 2023-05-22 14:54 | disposition home or self-care (01) ==
LOC: EDBD 08:48 → M ED 08:48
DX: R55 Syncope and collapse (principal); Z87.820 Personal history of traumatic brain injury; Z11.52 Encounter for screening for COVID-19; I51.81 Takotsubo syndrome; M35.3 Polymyalgia rheumatica; Z79.899 Other long term (current) drug therapy

== ENCOUNTER → 2023-06-15 | Outpatient (REF) | payer OTHER ==
[~2023-06-15] MED LIST changes: +ECOT81TA5 PO
[2023-06-15 12:00] LABS: BASO % 0.6 % (0.0-1.0); EOS # 0.1 10^3/uL (0.0-0.5); EOS % 1.6 % (0.0-3.0); HEMATOCRIT 37.4 % (36.0-47.0); HEMOGLOBIN 12.1 g/dl (12.0-15.5); LYMPH # 1.8 10^3/uL (1.5-5.0); LYMPH % 36.2 % (24.0-44.0); MEAN CORPUSCULAR HEMOGLOBIN 31.8 pg (27.0-33.0); MEAN CORPUSCULAR HGB CONC 32.4 g/dl (32.0-36.5); MEAN CORPUSCULAR VOLUME 98.2 fl (80.0-96.0); MONO # 0.3 10^3/uL (0.0-0.8); MONO % 6.4 % (2.0-8.0); NEUTROPHILS # 2.8 10^3/uL (1.5-8.5); NEUTROPHILS % 55.2 % (36.0-66.0); PLATELET COUNT, AUTOMATED 173 10^3/uL (150-450); RED BLOOD COUNT 3.81 10^6/uL (4.00-5.40)
[2023-06-15 12:26] LABS: C REACTIVE PROTEIN QUANTITATIV < 0.40 MG/DL (<1.0)
[2023-06-15 12:27] LABS: ALBUMIN 3.5 G/DL (3.2-5.2); ALKALINE PHOSPHATASE 50 U/L (46-116); ALT/SGPT 17 U/L (7.0-40); AST/SGOT 11 U/L (<34); BILIRUBIN,TOTAL 0.6 MG/DL (0.3-1.2); BLOOD UREA NITROGEN 14 MG/DL (9-23); CALCIUM LEVEL 8.7 MG/DL (8.3-10.6); CARBON DIOXIDE LEVEL 29 MMOL/L (20-31); CHLORIDE LEVEL 110 MMOL/L (98-107); CREATININE FOR GFR 0.72 MG/DL (0.55-1.30); GLOMERULAR FILTRATION RATE > 60.0 (>45); GLUCOSE, FASTING 66 MG/DL (74-106); POTASSIUM SERUM 4.1 MMOL/L (3.5-5.1); SODIUM LEVEL 144 MMOL/L (136-145); TOTAL PROTEIN 5.6 G/DL (5.7-8.2)
[2023-06-15 12:32] LABS: ERYTHROCYTE SEDIMENTATION RATE 2 mm/hr (0-30)
== END ==
LOC: M SFHCRHEU 06:59
PROVIDERS: ATTEND Internal Medicine Rheumatology
DX: Z00.00 Encounter for general adult medical examination without abnormal findings (principal); M35.3 Polymyalgia rheumatica; R76.8 Other specified abnormal immunological findings in serum; Z79.899 Other long term (current) drug therapy; R94.6 Abnormal results of thyroid function studies; E55.9 Vitamin D deficiency, unspecified

== ENCOUNTER → 2023-09-12 | Outpatient (CLI) | payer OTHER ==
[2023-09-12 15:47] LABS: CORTISOL BASELINE 4.5 UG/DL (4.3-22.4)
[2023-09-12 15:49] LABS: THYROID STIMULATING HORMONE 1.692 uIU/ML (0.55-4.78)
[2023-09-12 15:50] LABS: PROLACTIN 5.46 NG/ML
[2023-09-12 15:53] LABS: FREE T4 0.96 NG/DL (0.89-1.76)
== END ==
LOC: M PLALAB 12:27
PROVIDERS: ATTEND Physical Medicine & Rehabilitation
DX: F07.81 Postconcussional syndrome (principal)

== ENCOUNTER → 2023-09-19 | Outpatient (REF) | payer OTHER ==
[2023-09-19 13:13] LABS: BASO % 0.6 % (0.0-1.0); EOS # 0.1 10^3/uL (0.0-0.5); EOS % 2.7 % (0.0-3.0); HEMATOCRIT 36.9 % (36.0-47.0); HEMOGLOBIN 11.8 g/dl (12.0-15.5); LYMPH # 1.8 10^3/uL (1.5-5.0); LYMPH % 36.3 % (24.0-44.0); MEAN CORPUSCULAR HEMOGLOBIN 31.7 pg (27.0-33.0); MEAN CORPUSCULAR VOLUME 99.2 fl (80.0-96.0); MONO # 0.4 10^3/uL (0.0-0.8); MONO % 7.5 % (2.0-8.0); NEUTROPHILS # 2.5 10^3/uL (1.5-8.5); NEUTROPHILS % 52.7 % (36.0-66.0); PLATELET COUNT, AUTOMATED 170 10^3/uL (150-450); RED BLOOD COUNT 3.72 10^6/uL (4.00-5.40); WHITE BLOOD COUNT 4.8 10^3/uL (4.0-10.0)
[2023-09-19 13:32] LABS: ERYTHROCYTE SEDIMENTATION RATE 2 mm/hr (0-30)
[2023-09-19 13:38] LABS: C REACTIVE PROTEIN QUANTITATIV < 0.40 MG/DL (<1.0)
[2023-09-19 13:40] LABS: ALBUMIN 3.6 G/DL (3.2-5.2); ALKALINE PHOSPHATASE 54 U/L (46-116); ALT/SGPT 19 U/L (7.0-40); AST/SGOT 14 U/L (<34); BILIRUBIN,TOTAL 0.6 MG/DL (0.3-1.2); BLOOD UREA NITROGEN 17 MG/DL (9-23); CALCIUM LEVEL 8.7 MG/DL (8.3-10.6); CARBON DIOXIDE LEVEL 31 MMOL/L (20-31); CHLORIDE LEVEL 109 MMOL/L (98-107); GLOMERULAR FILTRATION RATE > 60.0 (>45); GLUCOSE, FASTING 89 MG/DL (74-106); POTASSIUM SERUM 4.3 MMOL/L (3.5-5.1); SODIUM LEVEL 144 MMOL/L (136-145); TOTAL PROTEIN 5.6 G/DL (5.7-8.2)
== END ==
LOC: M SFHCRHEU 07:02
PROVIDERS: ATTEND Internal Medicine Rheumatology
DX: M35.3 Polymyalgia rheumatica (principal); R76.8 Other specified abnormal immunological findings in serum; Z79.899 Other long term (current) drug therapy; R94.6 Abnormal results of thyroid function studies; E55.9 Vitamin D deficiency, unspecified

== ENCOUNTER → 2023-09-20 | Outpatient (CLI) | payer OTHER | LOC: M RAD 08:02 | PROVIDERS: ATTEND Family Medicine | DX: Z82.49 Family history of ischemic heart disease and other diseases of the circulatory system (principal) ==

== ENCOUNTER → 2023-10-02 | Outpatient (CLI) | payer OTHER ==
[2023-10-02 10:47] LABS: CHOLESTEROL LEVEL 239 MG/DL (<200); CHOLESTEROL RISK RATIO 3.09 (<5); HDL CHOLESTEROL 77.3 MG/DL (>40); LDL CHOLESTEROL 146.3 MG/DL (<100); NON-HDL-C 161.7 MG/DL; TRIGLYCERIDES LEVEL 77 MG/DL (<150)
[2023-10-02 10:48] LABS: FOLATE > 24.00 NG/ML (>5.4); TOTAL 25(OH) VITAMIN D 36.5 NG/ML (20.0-100.0)
[2023-10-02 11:18] LABS: VITAMIN B12 LEVEL > 2000 PG/ML (211-911)
== END ==
LOC: M PLALAB 07:07
PROVIDERS: ATTEND Family Medicine
DX: E66.3 Overweight (principal)

== ENCOUNTER → 2023-10-30 | Outpatient (CLI) | payer OTHER ==
[2023-10-30 08:10] LABS: BASO % 0.6 % (0.0-1.0); EOS # 0.1 10^3/uL (0.0-0.5); EOS % 2.2 % (0.0-3.0); HEMATOCRIT 36.4 % (36.0-47.0); HEMOGLOBIN 12.1 g/dl (12.0-15.5); LYMPH # 1.9 10^3/uL (1.5-5.0); MEAN CORPUSCULAR HEMOGLOBIN 32.1 pg (27.0-33.0); MEAN CORPUSCULAR HGB CONC 33.2 g/dl (32.0-36.5); MEAN CORPUSCULAR VOLUME 96.6 fl (80.0-96.0); MONO # 0.3 10^3/uL (0.0-0.8); MONO % 6.8 % (2.0-8.0); NEUTROPHILS # 2.7 10^3/uL (1.5-8.5); PLATELET COUNT, AUTOMATED 178 10^3/uL (150-450); RED BLOOD COUNT 3.77 10^6/uL (4.00-5.40)
[2023-10-30 08:37] LABS: FOLATE 23.09 NG/ML (>5.4)
== END ==
LOC: M LAB 07:15 → M PLALAB 07:15
PROVIDERS: ATTEND Family Medicine
DX: R74.8 Abnormal levels of other serum enzymes (principal)

== ENCOUNTER → 2023-12-15 | Outpatient (CLI) | payer OTHER | LOC: M PLALAB 10:36 | PROVIDERS: ATTEND Physician Assistant | DX: R22.9 Localized swelling, mass and lump, unspecified (principal); R07.81 Pleurodynia; M54.89 Other dorsalgia; M47.814 Spondylosis without myelopathy or radiculopathy, thoracic region ==

== ENCOUNTER → 2024-01-18 | Outpatient (CLI) | payer OTHER | LOC: M RAD 14:25 | PROVIDERS: ATTEND Physician Assistant | DX: R22.9 Localized swelling, mass and lump, unspecified (principal) ==

== ENCOUNTER 2024-02-22 06:59 | Day surgery (SDC) | payer OTHER ==
[~2024-02-22] VITALS: Ht 162.6 cm; Wt 69.4 kg
[~2024-02-22 06:59] MED LIST changes: +CALC600C3 PO; +ELDE350C PO; +MAGN400C PO; +OMEG10002 PO; +PROB250C PO; +REFR0.5D8 OP
[2024-02-22] MEDS: NS 1,000 ML IV ONE (07:32)
[2024-02-22] MEDS ORDERED: GLYCOPYRROLATE INJ 0.2 MG/ML 2 ML VIAL As Ordered ONE (08:10)
[2024-02-22] MEDS ORDERED: propofoL 200 MG/20 ML VIAL As Ordered ONE (08:11)
[2024-02-22 08:27] VITALS: TEMP 96.9
[2024-02-22 08:40] VITALS: BP 108/52; O2SAT 97
== END 2024-02-22 08:40 | disposition home or self-care (01) ==
LOC: M OPP 06:59
PROVIDERS: ATTEND Internal Medicine Gastroenterology
DX: Z12.11 Encounter for screening for malignant neoplasm of colon (principal); D12.0 Benign neoplasm of cecum; K64.8 Other hemorrhoids; K57.30 Diverticulosis of large intestine without perforation or abscess without bleeding; I50.9 Heart failure, unspecified; Z79.82 Long term (current) use of aspirin; Z79.810 Long term (current) use of selective estrogen receptor modulators (SERMs)
CPT/HCPCS: 45385; 88305; J1596

== ENCOUNTER → 2024-06-18 | Outpatient (CLI) | payer OTHER | LOC: M RAD 09:58 | PROVIDERS: ATTEND Nurse Practitioner Family | DX: M54.50 Low back pain, unspecified (principal) ==

== ENCOUNTER → 2024-06-26 | Outpatient (CLI) | payer OTHER ==
[2024-06-26 11:29] LABS: CHOLESTEROL RISK RATIO 3.48 (<5); HDL CHOLESTEROL 56.3 MG/DL (>40); LDL CHOLESTEROL 126.9 MG/DL (<100); NON-HDL-C 139.7 MG/DL
== END ==
LOC: M PLALAB 08:25
PROVIDERS: ATTEND Physician Assistant Medical
DX: I71.20 Thoracic aortic aneurysm, without rupture, unspecified (principal)

== ENCOUNTER → 2024-10-30 | Outpatient (REF) | payer OTHER ==
[2024-10-30 15:59] LABS: BASO % 0.5 % (0.0-1.0); EOS # 0.1 10^3/uL (0.0-0.5); EOS % 1.7 % (0.0-3.0); HEMATOCRIT 40.9 % (36.0-47.0); HEMOGLOBIN 12.7 g/dl (12.0-15.5); LYMPH # 2.1 10^3/uL (1.5-5.0); LYMPH % 35.7 % (24.0-44.0); MEAN CORPUSCULAR HEMOGLOBIN 30.9 pg (27.0-33.0); MEAN CORPUSCULAR HGB CONC 31.1 g/dl (32.0-36.5); MEAN CORPUSCULAR VOLUME 99.5 fl (80.0-96.0); MONO # 0.5 10^3/uL (0.0-0.8); MONO % 7.7 % (2.0-8.0); NEUTROPHILS # 3.2 10^3/uL (1.5-8.5); NEUTROPHILS % 54.1 % (36.0-66.0); PLATELET COUNT, AUTOMATED 200 10^3/uL (150-450); RED BLOOD COUNT 4.11 10^6/uL (4.00-5.40); WHITE BLOOD COUNT 5.8 10^3/uL (4.0-10.0)
[2024-10-30 16:06] LABS: ERYTHROCYTE SEDIMENTATION RATE 6 mm/hr (0-30)
[2024-10-30 16:30] LABS: C REACTIVE PROTEIN QUANTITATIV < 0.50 MG/DL (<1.0)
[2024-10-30 16:31] LABS: ALBUMIN 3.8 G/DL (3.2-5.2); ALKALINE PHOSPHATASE 72 U/L (35-104); ALT/SGPT 20 U/L (7.0-40); AST/SGOT 17 U/L (<34); BILIRUBIN,TOTAL 0.5 MG/DL (0.3-1.2); BLOOD UREA NITROGEN 12 MG/DL (9-23); CALCIUM LEVEL 9.5 MG/DL (8.3-10.6); CARBON DIOXIDE LEVEL 31 MMOL/L (20-31); CHLORIDE LEVEL 105 MMOL/L (98-107); CREATININE FOR GFR 0.73 MG/DL (0.55-1.30); GLOMERULAR FILTRATION RATE > 90.0 (>45); GLUCOSE, FASTING 78 MG/DL (74-106); POTASSIUM SERUM 4.3 MMOL/L (3.5-5.1); SODIUM LEVEL 144 MMOL/L (136-145); TOTAL PROTEIN 6.2 G/DL (5.7-8.2)
== END ==
LOC: M SFHCRHEU 07:02
PROVIDERS: ATTEND Internal Medicine Rheumatology
DX: M35.3 Polymyalgia rheumatica (principal); R76.8 Other specified abnormal immunological findings in serum; Z79.899 Other long term (current) drug therapy; R94.6 Abnormal results of thyroid function studies; E55.9 Vitamin D deficiency, unspecified

== ENCOUNTER → 2025-01-10 | Outpatient (CLI) | payer OTHER | LOC: M RAD 08:03 | PROVIDERS: ATTEND Nurse Practitioner Family | DX: R16.0 Hepatomegaly, not elsewhere classified (principal); K76.89 Other specified diseases of liver ==

== ENCOUNTER → 2025-03-04 | Outpatient (CLI) | payer OTHER ==
[~2025-03-04] MED LIST changes: -COLC0.6T47 PO; +COLC0.6T53 PO; +GADOXETATE DISODIUM 2.5 MMOL/10 ML VIAL ONE
== END ==
LOC: M PLAIMG 07:49
PROVIDERS: ATTEND Nurse Practitioner Family
DX: R16.0 Hepatomegaly, not elsewhere classified (principal)

== ENCOUNTER → 2025-04-08 | Outpatient (CLI) | payer OTHER ==
[~2025-04-08] MED LIST changes: -GADOXETATE DISODIUM 2.5 MMOL/10 ML VIAL ONE
[2025-04-08 13:09] LABS: ESTIMATED AVERAGE GLUCOSE 117.0 MG/DL (60-110)
[2025-04-08 13:17] LABS: CREATININE FOR GFR 0.72 MG/DL (0.55-1.30); GLOMERULAR FILTRATION RATE > 90.0 (>45); RHEUMATOID FACTOR QUANT < 3.5 IU/ML (<14)
[2025-04-08 13:20] LABS: VITAMIN B12 LEVEL 509 PG/ML (211-911)
[2025-04-09 11:02] LABS: T P ELECTROPHORESIS SO 6.2 g/dL (6.1-8.1)
[2025-04-11 07:45] LABS: ALBUMIN SPEP 4.2 g/dL (3.8-4.8); ALPHA-1-GLOBULINS SO 0.2 g/dL (0.2-0.3); ALPHA-2-GLOBULINS SO 0.5 g/dL (0.5-0.9); BETA 2 GLOBULIN 0.3 g/dL (0.2-0.5); BETA-GLOBULIN SO 0.4 g/dL (0.4-0.6); GAMMA GLOBULINS SO 0.6 g/dL (0.8-1.7)
[2025-04-11 18:18] LABS: VITAMIN E(ALPHA TOCOPHEROL) 21.2 mg/L (5.7-19.9); VITAMIN E(GAMMA TOCOPHEROL) < 1.0 mg/L (<=4.3)
[2025-04-12 00:33] LABS: VITAMIN B6,PYRIDOXAL PHOSPHATE 11.6 ng/mL (2.1-21.7)
[2025-04-14 15:06] LABS: VITAMIN B1 LEVEL WHOLE BLOOD 102 nmol/L (78-185)
== END ==
LOC: M LAB 10:52
PROVIDERS: ATTEND Psychiatry & Neurology Neurology
DX: E11.40 Type 2 diabetes mellitus with diabetic neuropathy, unspecified (principal); R20.0 Anesthesia of skin